=== PATIENT | female | born 1990 | race Hispanic/Latino ===

== ENCOUNTER 2017-02-07 14:55 | Inpatient (IN) | payer MEDICAID ==
[~2017-02-07] VITALS: Ht 160 cm; Wt 88.5 kg
[2017-02-07 15:48] LABS: APPEARANCE,URINE Clear (CLEAR); BILIRUBIN,URINE Negative (NEGATIVE); COLOR,URINE Yellow (YELLOW); GLUCOSE, URINE (UA) Negative (NEGATIVE); KETONES,URINE 40 mg/dL (NEGATIVE); LEUKOCYTE ESTERASE ,URINE Trace (NEGATIVE); NITRATE,URINE Negative (NEGATIVE); OCCULT BLOOD,URINE Small (NEGATIVE); PH,URINE 7.5 (5.0-8.0); PROTEIN,URINE Negative (NEGATIVE); UROBILINOGEN,URINE 0.2 mg/dL (0.2-1.0)
[2017-02-07 15:58] LABS: BACTERIA,URINE Rare /HPF (None Seen); MUCUS,URINE Few LPF (None Seen); WBC,URINE 0-1 /HPF (0-1)
[2017-02-07] MEDS ORDERED: LACTATED RINGERS 1000ML 1,000 ML IV PRN (16:03)
[2017-02-07 16:20] LABS: HEMATOCRIT 35.4 % (36-48); MEAN CORPUSCULAR HEMOGLOBIN 25.9 pg (27.0-33.0); MEAN CORPUSCULAR HGB CONC 33.1 g/dL (32.0-36.0); MEAN CORPUSCULAR VOLUME 78.2 fL (79-99); PLATELET COUNT (AUTO) 336 K/uL (130-400); RED BLOOD CELL COUNT(AUTO) 4.53 MIL/uL (4.00-5.50); RED CELL DISTRIBUTION WIDTH 18.4 % (11.0-15.5); WHITE BLOOD COUNT (AUTO) 10.9 K/uL (4.8-10.8)
[2017-02-07] MEDS ORDERED: LACTATED RINGERS 1000ML 1,000 ML IV ONE (17:05)
[2017-02-07] MEDS ORDERED: OXYTOCIN 10 USP UNITS/ML ONE ×2 (17:06→23:28)
[2017-02-07] MEDS ORDERED: PROMETHAZINE HCL 25 MG/ML 1ML AMPULE IM SCH (17:15)
[2017-02-07] MEDS ORDERED: PROMETHAZINE HCL 25 MG/ML 1ML AMPULE IM ONE (17:23)
[2017-02-07] MEDS ORDERED: MEPERIDINE-PF 50 MG/ML SYG ONE (17:23)
[2017-02-07] MEDS ORDERED: MEPERIDINE-PF 50 MG/ML SYG IVP SCH (17:42)
[2017-02-07] MEDS ORDERED: OXYTOCIN 10 USP UNITS/ML 20 UNIT in LACTATED RINGERS 1000ML 1,000 ML IV SCH (18:15)
[2017-02-07] MEDS ORDERED: LIDOCAINE HCL 2% 20ML ONE (19:28)
[2017-02-07] MEDS ORDERED: DIPH,PERTUSS(ACELL),TET VAC/PF 0.5 ML VIAL IM PRN (19:45)
[2017-02-07] MEDS ORDERED: WITCH HAZEL 1 PAD TP PRN (19:45)
[2017-02-07] MEDS ORDERED: LANOLIN 30GM OINTMENT TP PRN (19:45)
[2017-02-07] MEDS ORDERED: BENZOCAINE/LANOLIN/ALOE VERA 60 ML AEROSOL TP PRN (19:45)
[2017-02-07] MEDS ORDERED: ACETAMINOPHEN-CODEINE 300/30MG TAB PO PRN (19:45)
[2017-02-07] MEDS: DOCUSATE SODIUM 100 MG CAP PO SCH (20:41)
[2017-02-07 21:03] VITALS: BP 110/79
[2017-02-07] MEDS ORDERED: PREN1TAB89 PO (21:15)
[2017-02-07] MEDS: IBUPROFEN 800 MG TAB PO PRN (21:17)
[2017-02-07 22:54] VITALS: BP 105/65
[2017-02-07] MEDS: OXYTOCIN-LR 20 UNITS/1000 ML 1,000 ML IV SCH (23:31)
[2017-02-08 03:37] VITALS: BP 107/60
[2017-02-08 07:39] VITALS: BP 108/47
[2017-02-08] MEDS: DOCUSATE SODIUM 100 MG CAP PO SCH (08:57)
[2017-02-08] MEDS: IBUPROFEN 800 MG TAB PO PRN ×2 (08:58→18:52)
[2017-02-08 12:45] VITALS: BP 107/56
[2017-02-08 15:37] VITALS: BP 115/55
[2017-02-08] MEDS: OXYTOCIN-LR 20 UNITS/1000 ML 1,000 ML IV SCH (19:07)
[2017-02-08 19:19] VITALS: BP 116/71
[2017-02-09 07:24] LABS: HEPATITIS Bs ANTIGEN SCREEN P Negative (Negative)
== END 2017-02-08 19:50 | disposition home or self-care (01) | DRG 560 ==
LOC: EDH 14:55 → LDH 14:56 → OBSVTOIN 14:56 → LDH 15:40 → WSH 20:55
PROC: 10E0XZZ Delivery of Products of Conception, External Approach (ICD-10-PCS; principal; 2017-02-07)
PROC: 10907ZC Drainage of Amniotic Fluid, Therapeutic from Products of Conception, Via Natural or Artificial Opening (ICD-10-PCS; 2017-02-07)
PROC: 0HQ9XZZ Repair Perineum Skin, External Approach (ICD-10-PCS; 2017-02-07)
PROC: 3E0234Z Introduction of Serum, Toxoid and Vaccine into Muscle, Percutaneous Approach (ICD-10-PCS; 2017-02-07)
DX: O70.0 First degree perineal laceration during delivery (principal); Z23 Encounter for immunization; Z37.0 Single live birth; Z3A.39 39 weeks gestation of pregnancy
CPT/HCPCS: 36415; 81001; 85027; 86592; 86850; 86900; 86901; 87340; J2175; J2550; J2590; J3490; J7120

== ENCOUNTER 2017-03-28 09:39 | Day surgery (SDC) | payer MEDICAID ==
[2017-03-27 09:57] VITALS: BP 114/65
[2017-03-27 10:06] LABS: BASOPHILS % (AUTO) 0.7 % (0.0-5.0); EOSINOPHILS % (AUTO) 2.6 % (0.0-8.0); HEMATOCRIT 39.7 % (36-48); LYMPHOCYTES % (AUTO) 32.6 % (21.0-51.0); MEAN CORPUSCULAR HEMOGLOBIN 26.7 pg (27.0-33.0); MEAN CORPUSCULAR HGB CONC 33.8 g/dL (32.0-36.0); MEAN CORPUSCULAR VOLUME 79.2 fL (79-99); MONOCYTES % (AUTO) 6.2 % (3.0-13.0); NEUTROPHILS % (AUTO) 57.9 % (40.0-77.0); PLATELET COUNT (AUTO) 328 K/uL (130-400); RED BLOOD CELL COUNT(AUTO) 5.01 MIL/uL (4.00-5.50); RED CELL DISTRIBUTION WIDTH 19.8 % (11.0-15.5); WHITE BLOOD COUNT (AUTO) 8.5 K/uL (4.8-10.8)
[2017-03-28] VITALS (21 sets, daily range): BP systolic 78–130; BP diastolic 41–78
[~2017-03-28] VITALS: Ht 157.5 cm; Wt 76.7 kg
[~2017-03-28 09:39] MED LIST: CALDOLOR 800MG+NS 250ML 250 ML IV SCH; CEFAZOLIN SODIUM 1 GM VIAL IVP SCH; LACTATED RINGERS 1000ML 1,000 ML IV SCH
[2017-03-28] MEDS ORDERED: DEXAMETHASONE SOD PHOSPHATE 10MG/ML 1ML VIAL ONE (11:29)
[2017-03-28] MEDS ORDERED: ONDANSETRON HCL 4 MG/2 ML VIAL ONE (11:29)
[2017-03-28] MEDS ORDERED: ROCURONIUM BROMIDE 10MG/1ML 5ML VL ONE (11:29)
[2017-03-28] MEDS ORDERED: FENTANYL CITRATE PF 50 MCG/1 ML 2ML VIAL ONE (11:30)
[2017-03-28] MEDS ORDERED: PROPOFOL 10 MG/ML 20ML VIAL IV ONE (11:30)
[2017-03-28] MEDS ORDERED: MIDAZOLAM HCL 1 MG/ML 2ML VIAL ONE (11:30)
[2017-03-28] MEDS ORDERED: BUPIVACAINE/PF 0.25% 30ML VIAL IJ ONE (11:42)
[2017-03-28] MEDS ORDERED: OCTYL 2-CYANOACRYLATE 1 EACH TP ONE (11:51)
== END 2017-03-28 15:15 | disposition home or self-care (01) ==
LOC: DAH 09:39
DX: Z30.2 Encounter for sterilization (principal); Z98.890 Other specified postprocedural states; K66.0 Peritoneal adhesions (postprocedural) (postinfection); E11.9 Type 2 diabetes mellitus without complications; I10 Essential (primary) hypertension; E66.9 Obesity, unspecified
CPT/HCPCS: 36415; 58670; 84703; 85025; A4215; A4351; A4510; A4600 ×2; C1769 ×2; J1100; J1741; J2250; J2405; J2704; J3010; J3490 ×2; J7040; J7120